=== PATIENT | female | born 2000 | race Caucasian/White ===

== ENCOUNTER 2022-03-03 08:56 | Day surgery (SDC) | payer OTHER, SELFPAY ==
[2022-03-03] VITALS (13 sets, daily range): BP systolic 99–140; BP diastolic 70–106; PULSE 64–93; RESP 16; TEMP 36.3–36.7; O2SAT 98–100; BMI 24.3
[2022-03-03] MEDS: OXYMETAZOLINE 0.05% NASAL SPRAY 2 SPRAY NOSTRIL-B (09:53)
[2022-03-03] MEDS: LACTATED RINGERS 1000 ML 1,000 ML 100 ML IV (10:00)
[2022-03-03] MEDS: ETHYL CHLORIDE 1 APPLICATION 1 APPLIC TOPICAL (10:03)
[2022-03-03] MEDS: SODIUM CHLORIDE 0.9 % (FLUSH) 10 ML SYRINGE IVF (10:03)
[2022-03-03] MEDS: COCAINE HCL 4 % 4 ML SOLUTION NOSTRIL-B (11:00)
[2022-03-03] MEDS: AYR SALINE NASAL GEL 1 APPLIC NOSTRIL-B (11:07)
[2022-03-03] MEDS: BUPIVACAINE 0.5 %/EPI 1:200K 20 ML INJECTION (11:25)
[2022-03-03] MEDS: MUPIROCIN 1 GM PACKET 1 APPLIC TOPICAL (11:28)
--- NOTE | 2022-03-03 11:42 | W.ANESCHARGE ---
Anesthesia Charges Start Date/Time Anesthesia Start Date: 03/03/22 Anesthesia Start Time: 10:30 Stop Date/Time Anesthesia Stop Date: 03/03/22 Anesthesia Stop Time: 11:41 Summary Emergency: No
--- NOTE | 2022-03-03 12:15 | SUR.PHASEI ---
Right hand IV would not draw back or receive IV fluid. Consulted with Anesthesia, and they said to discontinue and not start a new IV. DELMI Olguin discontinued IV on right hand.
[2022-03-03] MEDS: ACETAMINOPHEN 325 MG TABLET PO (12:45)
[2022-03-03] MEDS: IBUPROFEN 200 MG TABLET PO (12:45)
--- NOTE | 2022-03-03 13:00 | W.PM.ENTPROC ---
Procedure Note Date of procedure: 03/03/22 Procedure: Preop diagnosis chronic right maxillary and ethmoid sinusitis, deviated septum, inferior turbinate hypertrophy, right middle turbinate hypertrophy, adenoid hypertrophy. Nasal obstruction. Postoperative diagnosis same with inspissated mucus completely filling right maxillary sinus, polypoid tissue right ethmoid sinus Procedure nasal septoplasty, submucous partial resection inferior turbinates, endoscopic right complete ethmoidectomy, endoscopic right maxillary antrostomy with tissue removal, adenoidectomy Under general endotracheal anesthesia patient was prepped and draped in usual fashion. [place] mouth gag was inserted the tongue retracted forward. No submucous cleft was noted. The adenoid pad was moderately enlarged and removed with suction cautery. After regarding and gloving attention was turned to the nose. The image guidance system was used with good registration. 0 degree endoscope was used throughout the procedure. The nose was injected and decongested. An incision was made in the septal mucosa anterior to the deflection and mucus close overlying the deflection elevated. The [place] dissector was used to incise the cartilage just anterior to the bony cartilaginous junction the tunnel created on the opposite side as well. The deflected portion of septum was cut above and below and then was simply replace to midline. A stab incision was made in the anterior of the right inferior turbinate a tunnel created with a [place] dissector. The hyacinth bone was outfractured and a conservative anterior submucous resection performed. The Coblation was used to cauterize intramurally along the inferior 10% and at the posterior head this was repeated on the left side in identical fashion. The right middle turbinate was crushed with the [place] forceps. The inferior quarter of the uncinate process was taken down and the natural ostium to maxillary sinus identified. It was occluded by polyp tissue which was removed and 9 mm antrostomy created. A very large amount of inspissated mucus was removed from the sinus with suction. The ethmoid bulla was taken down and dissection carried out in an anterior to posterior direction removing a moderate amount of polypoid tissue. Positive pack was trimmed and placed in the middle meatus on each side followed by a Merocel pack coated in Bactroban on each side. The patient procedure well was taken recovery in satisfactory condition blood loss during procedure was less than 50 mL Surgeon: Moses Lee MD
[2022-03-03 14:53] LABS: HCG Qualitative Serum* Negative (Negative)
== END 2022-03-03 13:20 | disposition home or self-care (01) ==
PROVIDERS: PCP Physician Assistant; Visit Provider Otolaryngology
PROC: (CPT 31231; principal; 2022-03-03 10:15)
PROC: (CPT 30520; 2022-03-03 10:15)
DX: J32.0 Chronic maxillary sinusitis (principal); J32.2 Chronic ethmoidal sinusitis; J34.2 Deviated nasal septum; J34.3 Hypertrophy of nasal turbinates; J35.2 Hypertrophy of adenoids
CPT/HCPCS: 30520; 30140; 31255; 31267; 42831; 160; 36415; 84702; 84703; 88305; 88311; A9270; J0330; J1100; J2250; J2405; J2704; J3010; J3490; J7120

== ENCOUNTER 2022-10-04 10:51 | Outpatient (CLI) | payer OTHER, SELFPAY ==
[2022-10-04 15:59] LABS: Chlamydia DNA Amplified* NOT DETECTED (No Detected); GC DNA Amplified* NOT DETECTED (No Detected)
== END 2022-10-04 10:52 | disposition home or self-care (01) ==
PROVIDERS: PCP Physician Assistant; Visit Provider Registered Nurse
DX: Z01.419 Encounter for gynecological examination (general) (routine) without abnormal findings (principal); Z11.3 Encounter for screening for infections with a predominantly sexual mode of transmission; Z13.6 Encounter for screening for cardiovascular disorders; Z83.3 Family history of diabetes mellitus; Z12.4 Encounter for screening for malignant neoplasm of cervix
CPT/HCPCS: 80061; 82947; 87491; 87591

== ENCOUNTER 2025-01-09 15:14 | Outpatient (CLI) | payer OTHER, SELFPAY ==
[2025-01-11 22:34] LABS: HPV Source Cervix
[2025-01-16 12:21] LABS: Pap Test Digital Imaging Done
== END 2025-01-09 15:15 | disposition home or self-care (01) ==
PROVIDERS: PCP Physician Assistant; Visit Provider Registered Nurse
DX: Z12.4 Encounter for screening for malignant neoplasm of cervix (principal)
CPT/HCPCS: 87624; 87625; 88141; 88142; 88175